=== PATIENT | male | born 1995 | race African-American/Black ===

== ENCOUNTER 2020-01-20 12:21 | Emergency (ER) | payer OTHER ==
[~2020-01-20] VITALS: Ht 188 cm; Wt 111.1 kg
[2020-01-20 12:32] VITALS: BP 130/80
[2020-01-20] MEDS ORDERED: HYDROcodone-ACET 5/325MG TAB PO ONE (13:45)
== END 2020-01-20 14:52 | disposition home or self-care (01) ==
LOC: ER 12:21
DX: S83.92XA Sprain of unspecified site of left knee, initial encounter (principal); M25.462 Effusion, left knee; W18.09XA Striking against other object with subsequent fall, initial encounter; Y93.89 Activity, other specified; Y92.481 Parking lot as the place of occurrence of the external cause; Y99.8 Other external cause status
CPT/HCPCS: 73562